=== PATIENT | female | born 1955 | race Caucasian/White ===

== ENCOUNTER 2017-07-21 13:16 | Emergency (ER) | payer SELFPAY ==
[~2017-07-21] VITALS: Ht 154.9 cm; Wt 73.0 kg
[2017-07-21] MEDS ORDERED: KETOROLAC 30MG/ML VIAL IM ONE (15:30)
[2017-07-21 16:16] VITALS: BP 123/80
== END 2017-07-21 16:00 | disposition home or self-care (01) ==
LOC: ER 13:32
DX: B34.8 Other viral infections of unspecified site (principal)
CPT/HCPCS: 96372; 99283; J1885